=== PATIENT | female | born 1985 ===

== ENCOUNTER 2017-03-05 19:49 | Emergency (ER) | payer MEDICAID ==
[2017-03-05 20:03] VITALS: O2SAT 100
[2017-03-05 20:05] VITALS: BP 136/89; PULSE 65; TEMP 97.6
--- NOTE | 2017-03-05 20:05 | C.PDOC ---
History Of Present Illness 31 yr old female with PMHx of asthma, presents to the ER with complaints of SOB and feeling anxious since morning. Prior records were reviewed which shows the patient was seen at [place] [facility] for similar symptoms. Patient denies fever, chills, chest pain, nausea, vomiting, abdominal pain, diarrhea, headache, weakness or numbness. Time Seen by Provider: 03/05/17 20:05 Chief Complaint (Nursing): Respiratory Distress History Per: Patient History/Exam Limitations: no limitations Onset/Duration Of Symptoms: Gradual Current Symptoms Are (Timing): Still Present Associated Symptoms: denies: Dyspnea, Cough, Sputum Production Preciptating Factors: Other (etoh) Severity: None Pain Scale Rating Of: 0 Additional History Per: Patient - Asthma History Medication Use: PRN Rescue Medications: None Control Medications: None Past Medical History Reviewed: Historical Data, Nursing Documentation, Vital Signs Vital Signs: Last Vital Signs Temp 97.6 F 03/05/17 20:04 Pulse 65 03/05/17 20:04 Resp 16 03/05/17 20:29 BP 136/89 03/05/17 20:04 Pulse Ox 100 03/05/17 20:16 - Medical History PMH: Asthma Family History: States: No Known Family Hx - Social History Hx Tobacco Use: Yes Hx Alcohol Use: Yes Hx Substance Use: No - Immunization History Hx Tetanus Toxoid Vaccination: Yes Hx Influenza Vaccination: No Hx Pneumococcal Vaccination: No Review Of Systems Except As Marked, All Systems Reviewed And Found Negative. Constitutional: Negative for: Fever, Chills Cardiovascular: Negative for: Chest Pain Respiratory: Positive for: Shortness of Breath Gastrointestinal: Negative for: Nausea, Vomiting, Abdominal Pain, Diarrhea Skin: Negative for: Rash Neurological: Negative for: Weakness, Numbness, Headache Psych: Positive for: Anxiety Physical Exam - Physical Exam Appears: Non-toxic, No Acute Distress, Other (Anxious ) Skin: Warm, Dry Eye(s): bilateral: Normal Inspection Oral Mucosa: Moist Neck: Supple Chest: Symmetrical, No Tenderness Respiratory: No Rales, No Rhonchi, No Wheezing Gastrointestinal/Abdominal: Soft, No Tenderness Extremity: No Tenderness, Capillary Refill (<2), No Deformity, No Swelling Extremity: Bilateral: Atraumatic Neurological/Psych: Oriented x3, Normal Speech, Normal Cognition Gait: Steady ED Course And Treatment O2 Sat by Pulse Oximetry: 100 Pulse Ox Interpretation: Normal Reevaluation Time: 21:15 Reassessment Condition: Improved Medical Decision Making Medical Decision Making: PLAN: * Drug Screen * HCG Urine * Urinalysis * Librium PO Disposition Counseled Patient/Family Regarding: Studies Performed, Diagnosis, Need For Followup - Disposition Referrals: [facility] [Outside] Disposition: HOME/ ROUTINE Disposition Time: 21:15 Condition: FAIR Instructions: Anxiety (ED) - Clinical Impression Clinical Impression: Anxiety - Scribe Statement The provider has reviewed the documentation as recorded by the Triibmichael Khalil Provider Attestation: All medical record entries made by the Shravan were at my direction and personally dictated by me. I have reviewed the chart and agree that the record accurately reflects my personal performance of the history, physical exam, medical decision making, and the department course for this patient. I have also personally directed, reviewed, and agree with the discharge instructions and disposition.
[2017-03-05 20:30] VITALS: RESP 16
[2017-03-05 20:31] LABS: RBC URINE < 1 /hpf (0-3); URINE BILIRUBIN NEGATIVE (NEGATIVE); URINE BLOOD NEGATIVE (NEGATIVE); URINE COLOR Straw (YELLOW); URINE GLUCOSE (UA) NORMAL (Normal); URINE KETONE 1+ mg/dL (NEGATIVE); URINE LEUKOCYTE ESTERASE NEG Leu/uL (Negative); URINE PROTEIN NEGATIVE (NEGATIVE); URINE UROBILINOGEN NORMAL mg/dL (0.2-1.0); WBC URINE < 1 /hpf (0-5)
== END 2017-03-05 21:31 | disposition home or self-care (01) ==
LOC: C.ER 19:49 → SUPCPDRO 19:49 → C.ER 21:31
DX: F41.9 Anxiety disorder, unspecified (principal)